=== PATIENT | male | born 1945 | race Caucasian/White ===

== ENCOUNTER 2024-03-01 08:37 | Emergency (ER) | payer MEDICARE, SELFPAY ==
[2024-03-01 08:38] VITALS: BP 162/62; PULSE 75; RESP 16; TEMP 36.8; O2SAT 97; BMI 26.6
--- NOTE | 2024-03-01 08:48 | ED.WOUNDLAC ---
HPI - Wound/Laceration General Chief Complaint: Wound/Laceration Stated Complaint: wound l side Time Seen by Provider: 03/01/24 08:48 Source: patient Mode of arrival: ambulatory Limitations: no limitations History of Present Illness HPI narrative: Patient is a 78 year male with history of DM presenting to the emergency department with complaint of pain and redness around an injury from 7-10 days ago. Patient states that he accidentally cut himself on the left chest with a screwdriver while working in the garage. He states that since he is noticed increasing redness and pain to that area. Unsure of last Tdap. Denies fevers. Denies any discharge or drainage from the area. Onset (ago): day(s) Location: chest Place: home Patient tetanus UTD: No Context: accidental Associated symptoms: pain Related Data Previous Rx's ?Medication ?Instructions ?Recorded cephalexin 500 mg capsule 500 mg PO QID #20 caps 03/01/24 valacyclovir 1 gram tablet 1,000 mg PO TID herpes zost #21 03/01/24 tabs Allergies Allergy/AdvReac Type Severity Reaction Status Date / Time No Known Allergies Allergy Verified 03/01/24 08:42 Review of Systems Review of Systems: As per HPI. Yes all other systems are reviewed and are negative Constitutional: Constitutional: Reports as per HPI [facility] Social History Social History Smoked in Last 30 Days: No Use of substances other than those prescribed or required for medical reasons: No Advance Directives: Yes Advance Directives Information Provided: No Advance Directives on File: No Physical Exam Vital Signs: Vital Signs: Last Vital Signs Temp 98.2 F 03/01/24 08:38 Pulse 75 03/01/24 08:38 Resp 16 03/01/24 08:38 BP 162/62 H 03/01/24 08:38 Pulse Ox 97 03/01/24 08:38 O2 Del Method Room Air 03/01/24 08:38 BMI result Body Mass Index 26.6 Vital signs have been reviewed and appear to be correct. Blood pressure elevated. Heart rate normal. Respiratory rate normal. Temperature normal. Oxygen saturation normal. Const: General: cooperative, healthy appearing and no acute distress Orientation/consciousness: oriented to person, oriented to place, oriented to time and patient oriented x3 Limitations: no limitations HEENT: Head: Yes normocephalic and Yes atraumatic Ears: external ears normal General nose exam: Normal external nose present Face and sinus: Yes face symmetric Mouth: oropharynx normal and moist mucous membranes Throat: Yes uvula midline Eyes: Pupils: Equal, round and reactive pupils present Neck: Neck: Yes normal visual inspection and Yes supple Chest: Chest/axillae images: 1. 1cm scab 2. erythematous vesicular rash in dermatomal distribution overlying above noted scab Resp: Effort & Inspection: normal respiratory effort and able to speak in complete sentences Auscultation: clear to auscultation bilaterally Cardio: Rate: regular rate Rhythm: regular rhythm Heart sounds: S1 normal heart sound present and S2 normal heart sound present GI: Palpation (GI): Soft to palpation and nontender Auscultation: normoactive bowel sounds : General: Yes no CVA tenderness Back/Spine/Pelvis: Back: no CVA tenderness Skin: General skin exam: elasticity normal and turgor normal Neuro: General: oriented to person, oriented to place, oriented to time, patient oriented x3, moves all extremities, no focal motor deficits and CN's II-XI intact bilaterally Cranial nerves: Yes Equal, round and reactive pupils present Cognition (Neuro): normal cognition Extrem: General: Yes full ROM, Yes no pedal edema and Yes no calf tenderness Psych: Mental Status: mental status grossly normal Affect: normal affect Thought process: Normal thought process present Medications Administered Discontinued Medications Generic Name Dose Route Start Last Admin Trade Name Freq PRN Reason Stop Dose Admin Diphtheria/Tetanus/Acell Pertussis 0.5 ml 03/01/24 09:00 03/01/24 09:05 Diphth,Pertus(Acell),Tet Adult 0.5 Ml Syringe IM 03/01/24 09:01 0.5 ml .ONCE ONE Administration Medical Decision Making Medical Decision Making MDM Narrative: Patient is a 78 year male with history of DM presenting to the emergency department with complaint of pain and redness around an injury from 7-10 days ago. On exam patient is awake, A+Ox3, BP elevated VS otherwise WNL, afebrile, normal neurological exam without focal deficits, physical exam findings as above. Given reported symptoms and physical exam findings, initial differential includes cellulitis, herpes zoster. Feel erythema and pain is more likely related to zoster than cellulitis but given patient's history of DM, will treat patient with both antibiotics and valacyclovir. Discussed with patient that he can alternate Tylenol and ibuprofen for discomfort. Discussed isolation precautions until rash scabs over. Instructed patient to follow-up with his primary care provider. Patient verbalized understanding of and agreement with plan. Differential Diagnosis Differential Diagnoses: The differential diagnosis associated with the presentation includes As per MDM. External Record Review External record reviewed: Inpatient record, Office record and Outpatient record Prescription Management I considered prescription management with: Antiviral and Antibiotic Discharge Plan Discharge Clinical Impression: Herpes zoster, Cellulitis Patient Disposition: Home, Self-Care Instructions: Shingles (ED), Cellulitis (DC) Additional Instructions: You were evaluated in the emergency department today for pain and redness around an injury from one week ago. You are being treated for cellulitis with antibiotics. You are also being treated for shingles with an antiviral medication. Please complete the full courses of all medications as prescribed. Please avoid anyone who is immunocompromised (on chemo, etc), women, and infants until your rash has fully crusted over. We recommend that you take 600 mg of ibuprofen or 650 mg of Tylenol every 6 hours as needed for pain. If necessary, you can alternate these medications every 3 hours. For example, at 9:00 a.m. take Tylenol, then at noon take ibuprofen, then at 3:00 p.m. take Tylenol, then at 6:00 p.m. take ibuprofen, etc.. Follow up with your primary care provider. Return to the emergency department if you develop worsening pain, increased redness, swelling, pain from your injury or thick yellow drainage from your wound. Prescriptions: New valacyclovir 1 gram tablet 1,000 mg PO TID Qty: 21 0RF cephalexin 500 mg capsule 500 mg PO QID Qty: 20 0RF Print Language: Bulgarian
[2024-03-01] MEDS: Diphth,Pertus(ACell),Tet Adult 0.5 ML SYRINGE IM (09:05)
[2024-03-01 09:33] VITALS: BP 158/87; PULSE 66; RESP 14; TEMP 36.4; O2SAT 96
== END 2024-03-01 09:36 | disposition home or self-care (01) ==
PROVIDERS: Emergency Provider Emergency Medicine Emergency Medical Services; PCP Internal Medicine Endocrinology, Diabetes & Metabolism
DX: S20.312A Abrasion of left front wall of thorax, initial encounter (principal); L03.313 Cellulitis of chest wall; B02.8 Zoster with other complications; W26.8XXA Contact with other sharp object(s), not elsewhere classified, initial encounter; Y93.9 Activity, unspecified; Y92.89 Other specified places as the place of occurrence of the external cause; Y99.8 Other external cause status; Z23 Encounter for immunization
CPT/HCPCS: 90471; 90715; 99284

== ENCOUNTER 2024-03-06 08:30 | Outpatient (AMB) | payer MEDICARE, SELFPAY ==
[2024-03-06 08:30] VITALS: BP 128/68; PULSE 105; TEMP 36.2; O2SAT 96; BMI 27.4
--- NOTE | 2024-03-06 08:30 | MHC.OFFWIV ---
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 He was seen at the [facility] on 03/01 for this and started on Valacyclovir 1g TID. He will complete regimen tomorrow, however he is concerned that the rash is still itchy. [facility] Social History Patient Tobacco Use Status: Never used Tobacco Review of Systems Const All systems reviewed & are unremarkable except as noted in HPI and below Physical Exam Const General: cooperative, healthy appearing and no acute distress Nutritional Appearance: average body habitus Orientation/consciousness: patient oriented x3 HEENT Head: Yes normal to inspection Resp Effort & Inspection: normal respiratory effort Auscultation: clear to auscultation bilaterally Cardio Rate: regular rate Rhythm: regular rhythm Skin Other: Vesicular rash with some scabbed lesions on left mid back, wrapping circumferentially around flank and extending to mid left abdomen. Neuro General: patient oriented x3 and no focal motor deficits Extrem General: Yes capillary refill normal and Yes no clubbing, cyanosis or edema Psych Appearance: grossly normal Mental Status: mental status grossly normal Speech and movement: Normal speech and movement present Assessment & Plan Assessment & Plan (1) Herpes zoster: Code(s): B02.9 - Zoster without complications Qualifiers: Herpes zoster complications: without complications Qualified Code(s): B02.9 - Zoster without complications Plan: Patient completing Valtrex regimen for Zoster tomorrow, however not all lesions are scabbed over at this time, and he is still having some pruritis. I am going to continue this regimen/refill for an additional 5 days. We discussed keeping area clean/dry, and he will return to the clinic as needed if he does not continue to improve with treatment, or if new symptoms develop. I encouraged him to think about getting the shingles shot once this rash is resolved. He agrees to plan. Medications: Changed From valacyclovir 1,000 mg PO TID 21 tabs 0RF herpes zost B02.9 - Zoster without complications To valacyclovir 1,000 mg PO TID 5 days 15 tabs 0RF herpes zost B02.9 - Zoster without complications Coding Level of Care Code Est Pt Level 4 (11461) Diagnoses Herpes zoster without complication B02.9 Herpes zoster complications: without complications
== END 2024-03-06 08:56 | disposition home or self-care (01) ==
PROVIDERS: PCP Internal Medicine Endocrinology, Diabetes & Metabolism; Visit Provider Nurse Practitioner Family
DX: B02.9 Zoster without complications (principal)
CPT/HCPCS: 99214

== ENCOUNTER 2024-03-20 08:34 | Outpatient (AMB) | payer MEDICARE, SELFPAY ==
[2024-03-20 08:38] VITALS: BP 130/60; PULSE 70; TEMP 36.6; O2SAT 96; BMI 27.8
--- NOTE | 2024-03-20 08:38 | AM.OFFWIN_ITS ---
Intake Vital Signs 03/20/24 08:38 Height 5 ft 8 in Weight 183 lb BMI 27.8 BP 130/60 Blood Pressure Location Lt brachial Position Sitting Pulse 70 Pulse Source Pulse Oximeter Temp 97.9 F Temp Source Temporal Artery Scan Pulse Oximetry (%) 96 Oxygen Delivery Method Room Air Intake Visit Reasons: EP pain due to shingles Intake Note: pt is here today for pain due to shingles started 3 weeks ago Patient Tobacco Use Status: Never used Tobacco Allergies No Known Allergies Allergy (Verified 03/20/24 08:43) Do you need a note to return to daycare/school/sports/work: No HPI HPI Comments History of Present Illness Details 79-year-old male presents today complain ing intermittent pain from his shingles outbreak that was diagnosed 3 weeks ago. He did have a course of antivirals that have improved the rash in the pain but is now asking for some kind of pain intervention [facility] Social History Patient Tobacco Use Status: Never used Tobacco Review of Systems Const All systems reviewed & are unremarkable except as noted in HPI and below Eyes Reports no additional complaints ENT Reports no additional complaints Card Reports no additional complaints Resp Reports no additional complaints Physical Exam Vital Signs: Last Vital Signs Temp 97.9 F 03/20/24 08:38 Pulse 70 03/20/24 08:38 BP 130/60 03/20/24 08:38 Pulse Ox 96 03/20/24 08:38 Oxygen Delivery Method Room Air 03/20/24 08:38 BMI result Body Mass Index 27.8 Const General: acute distress mild HEENT Head: Yes normal to inspection, Yes normocephalic and Yes atraumatic Ears: hearing grossly normal bilaterally, external ears normal, TM's normal bilaterally and EAC's normal General nose exam: Normal external nose present Face and sinus: Yes normal facial exam Chest Chest palpation & inspection: normal inspection of the chest Resp Effort & Inspection: normal respiratory effort Auscultation: clear to auscultation bilaterally Cardio Rate: regular rate Rhythm: regular rhythm Assessment & Plan Assessment & Plan (1) Shingles: Code(s): B02.9 - Zoster without complications Plan: The patient had been on diclofenac in the past and tolerated it fine. So I reordered that for his pain management as needed follow up with his PCP Plan See plan Medications: New diclofenac potassium 50 mg PO BID PRN 14 tabs 0RF pain Coding Level of Care Code Est Pt Level 3 (91331) Diagnoses Shingles B02.9
== END 2024-03-20 09:31 | disposition home or self-care (01) ==
PROVIDERS: PCP Internal Medicine Endocrinology, Diabetes & Metabolism; Visit Provider Physician Assistant Medical
DX: B02.9 Zoster without complications (principal)
CPT/HCPCS: 99213